=== PATIENT | male | born 2000 | race Caucasian/White ===

== ENCOUNTER 2022-06-27 14:42 | Emergency (ER) | payer OTHER ==
[2022-06-27 15:05] VITALS: BP 120/81; PULSE 84; RESP 17; TEMP 98.2; BMI 25.1
[2022-06-27 16:27] LABS: EPI CELLS 5 /uL (0-25.1); HYALINE CASTS 1 /uL (0-3.1); URINE APPEARANCE CLEAR; URINE BACTERIA 10 /uL (0-1359); URINE BILIRUBIN NEGATIVE (NEGATIVE); URINE COLOR YELLOW; URINE GLUCOSE (UA) NEGATIVE (NEGATIVE); URINE KETONE NEGATIVE (NEGATIVE); URINE LEUK ESTERASE 1+ (NEGATIVE); URINE NITRITE NEGATIVE (NEGATIVE); URINE PROTEIN NEGATIVE (NEGATIVE); URINE RBC 59 /uL (0-23.9); URINE UROBILINOGEN 0.2 mg/dL (0.2-1.0); URINE WBC 62 /uL (0-25.8)
[2022-06-27 17:55] LABS: SYPHILIS W/ RPR CONF NON-REACTIVE (NONREACTIVE)
[2022-06-27 18:24] LABS: HIV INTERPRETATION NEGATIVE (NEGATIVE)
== END 2022-06-27 19:02 | disposition home or self-care (01) ==
LOC: JERFT 14:42
DX: R30.0 Dysuria (principal)
CPT/HCPCS: 36415; 81003; 86780; 87086; 87389; 87491; 87591; 99284-25

== ENCOUNTER 2024-07-12 14:42 | Emergency (ER) | payer OTHER ==
[2024-07-12 15:05] VITALS: BP 124/76; PULSE 84; RESP 16; TEMP 98.4; BMI 28.0
[2024-07-12 16:16] LABS: EPI CELLS 2 /uL (0-25.1); HYALINE CASTS 1 /uL (0-3.1); PH,URINE 5.5 (5.0-8.0); URINE APPEARANCE CLEAR; URINE BACTERIA 7 /uL (0-1359); URINE BILIRUBIN NEGATIVE (NEGATIVE); URINE COLOR YELLOW; URINE GLUCOSE (UA) NEGATIVE (NEGATIVE); URINE KETONE NEGATIVE (NEGATIVE); URINE LEUK ESTERASE 1+ (NEGATIVE); URINE NITRITE NEGATIVE (NEGATIVE); URINE PROTEIN NEGATIVE (NEGATIVE); URINE RBC 7 /uL (0-23.9); URINE UROBILINOGEN 0.2 mg/dL (0.2-1.0); URINE WBC 66 /uL (0-25.8)
[2024-07-12] MEDS ORDERED: DOXYCYCLINE HYCLATE 100 MG CAPSULE PO ONE (16:25)
[2024-07-12] MEDS: DOXYCYCLINE HYCLATE 100 MG CAPSULE PO ONE (16:33)
[2024-07-13 16:14] LABS: HIV INTERPRETATION NEGATIVE (NEGATIVE)
== END 2024-07-12 16:38 | disposition home or self-care (01) ==
LOC: JER 14:42 → JERFT 14:42
DX: Z20.2 Contact with and (suspected) exposure to infections with a predominantly sexual mode of transmission (principal)
CPT/HCPCS: 36415; 81003; 86780; 86803; 87389; 87491; 87591; 87661; 99284-25

== ENCOUNTER 2024-07-30 20:11 | Emergency (ER) | payer OTHER ==
[2024-07-30 20:23] VITALS: BP 119/76; PULSE 95; RESP 18; TEMP 98.2; BMI 28.6
[2024-07-30 22:29] LABS: HIV INTERPRETATION NEGATIVE (NEGATIVE)
== END 2024-07-30 22:43 | disposition home or self-care (01) ==
LOC: JERFT 20:11 → JER 20:11 → JERFT 22:43
DX: Z11.3 Encounter for screening for infections with a predominantly sexual mode of transmission (principal)
CPT/HCPCS: 36415; 86695; 86696; 86803; 87389; 87491; 87591; 87661; 99283-25

== ENCOUNTER 2024-09-06 20:34 | Emergency (ER) | payer OTHER ==
[2024-09-06 20:47] VITALS: BP 119/72; PULSE 78; RESP 18; TEMP 97.5; BMI 29.5
[2024-09-06 21:13] LABS: PH,URINE 6.5 (5.0-8.0); URINE APPEARANCE CLEAR; URINE BILIRUBIN NEGATIVE (NEGATIVE); URINE COLOR YELLOW; URINE GLUCOSE (UA) NEGATIVE (NEGATIVE); URINE KETONE TRACE (NEGATIVE); URINE LEUK ESTERASE NEGATIVE (NEGATIVE); URINE NITRITE NEGATIVE (NEGATIVE); URINE PROTEIN NEGATIVE (NEGATIVE)
[2024-09-06 23:00] LABS: HIV INTERPRETATION NEGATIVE (NEGATIVE)
== END 2024-09-06 21:53 | disposition home or self-care (01) ==
LOC: JER 20:34 → JERFT 20:34
DX: A64 Unspecified sexually transmitted disease (principal)
CPT/HCPCS: 36415; 81003; 86780; 86803; 87086; 87389; 87491; 87591; 87661; 99283-25